=== PATIENT | male | born 1940 | race Caucasian/White ===

== ENCOUNTER 2017-01-04 21:10 | Inpatient (IN) | payer MEDICARE, OTHER ==
[~2017-01-04] VITALS: Ht 172.7 cm; Wt 87.7 kg
[~2017-01-04 21:10] MED LIST: MAGN300C; TERA5CAP42; [UNRECOGNIZED DRUG - OTHER]
[2017-01-04] MEDS ORDERED: cloNIDine HCL 0.1 MG TAB ONE (21:23)
[2017-01-04] MEDS ORDERED: cloNIDine HCL 0.1 MG TAB PO ONE (22:00)
[2017-01-04 22:04] LABS: Basophils # (auto) 0 uL; Basophils % (auto) 0.4 % (0.0-2.0); Eosinophils # (auto) 0.2 uL; Eosinophils % (auto) 2.5 % (0.0-7.0); Hematocrit 43.8 % (41.0-53.0); Hemoglobin 14.9 g/dL (13.5-17.5); Lymphocytes # (auto) 2.5 uL; Lymphocytes % (auto) 31.9 % (10.0-50.0); Mean Corpuscular Hemoglobin 31.3 pg (28.0-32.0); Mean Corpuscular Volume 91.9 fL (80.0-100.0); Mean Platelet Volume 8.4 fL (7.4-10.4); Monocytes # (auto) 0.7 uL; Monocytes % (auto) 8.4 % (0.0-12.0); Neutrophils # (auto) 4.4 uL; Neutrophils % (auto) 56.8 % (37.0-80.0); Platelet Count (auto) 189 10^3/uL (140-450); Red Cell Distribution Width 14.1 % (11.6-16.0); White Blood Cell 7.8 10^3/uL (4.4-10.8)
[2017-01-04 22:06] LABS: Urine Bilirubin Negative (Negative); Urine Blood Negative /uL (Negative); Urine Color Yellow (Yellow); Urine Glucose Normal (Normal); Urine Ketone Negative (Negative); Urine Mucus FEW (None Seen); Urine Nitrite Negative (Negative); Urine RBC <1 /hpf (0 - 3); Urine Urobilinogen Normal (Negative)
[2017-01-04 22:29] LABS: BUN/Creatinine Ratio 23.1; Bilirubin, Total 0.4 mg/dL (0.2-1.0); Calcium 8.3 mg/dL (8.5-10.1); Magnesium 2.5 mg/dL (1.6-2.6); Potassium 4.5 mmol/L (3.5-5.1); Total Protein 6.8 g/dL (6.4-8.2)
[2017-01-05] MEDS ORDERED: ASPI-231 PO (02:37)
[2017-01-05] MEDS ORDERED: ERGO1CAP6 PO (02:38)
[2017-01-05] MEDS ORDERED: SIMV-8 PO (02:38)
[2017-01-05] MEDS ORDERED: METO25TA62 PO (02:40)
[2017-01-05] MEDS ORDERED: ASPirin 81 mg TAB PO ONE (03:15)
[2017-01-05] MEDS ORDERED: SODIUM CHLORIDE 0.9% 1,000 ML IV ONE (06:00)
[2017-01-05] MEDS ORDERED: IOHEXOL 350 MG/ML 100ML IJ ONE (06:40)
[2017-01-05] MEDS ORDERED: NITROGLYCERIN 0.4 MG SL TAB SL PRN (08:45)
[2017-01-05] MEDS ORDERED: TEMAZEPAM 15 MG CAP PO PRN (08:45)
[2017-01-05] MEDS ORDERED: HYDROcodone-ACET 5/325MG TAB PO PRN (08:45)
[2017-01-05] MEDS ORDERED: ACETAMINOPHEN 500 MG TAB PO PRN (08:45)
[2017-01-05] MEDS ORDERED: PROMETHAZINE HCL 25 MG/ML 1ML IV PRN (08:45)
[2017-01-05] MEDS ORDERED: MORPHINE SULF INJ 2 MG/ML SYRINGE 1ML IV PRN ×2 (08:45)
[2017-01-05] MEDS ORDERED: LORazepam 0.5 MG TAB PO PRN (08:45)
[2017-01-05] MEDS: SODIUM CHLORIDE 0.9% 1,000 ML IV SCH ×2 (08:48→11:30)
[2017-01-05] MEDS ORDERED: PATIENTS OWN MEDICATION (Simvastatin 20 MG) PO SCH ×2 (10:00)
[2017-01-05] MEDS ORDERED: PATIENTS OWN MEDICATION (Metoprolol Succinate (Metoprolol Succinate Er) 25 MG) PO SCH ×2 (10:00)
[2017-01-05] MEDS: METOPROLOL TARTRATE 25 MG TAB PO SCH ×2 (10:00→22:00)
[2017-01-05] MEDS: PANTOPRAZOLE 40 MG TAB PO SCH (10:00)
[2017-01-05] MEDS: ENOXAPARIN SOD 40 MG/0.4 ML SYRINGE SC SCH (10:00)
[2017-01-05] MEDS: NITROGLYCERIN 0.2MG/HR TOPICAL PATCH TD SCH (10:00)
[2017-01-05] MEDS: cloNIDine HCL 0.1 MG TAB PO PRN (11:54)
[2017-01-05 13:00] VITALS: BP 180/75
[2017-01-05 17:00] VITALS: BP 148/83
[2017-01-05 20:00] VITALS: BP 162/77
[2017-01-05 20:55] LABS: B-Type Natriuretic Peptide 211.67 pg/mL (0-100); Temperature: 22.9 C (20.0-25.0)
[2017-01-05] MEDS ORDERED: Niacin SR 500mg TAB PO SCH (22:00)
[2017-01-05] MEDS ORDERED: PRAVASTATIN SODIUM 20 MG TAB PO SCH (22:00)
[2017-01-05] MEDS ORDERED: TERAZOSIN HCL 5 MG CAP PO SCH (22:00)
[2017-01-05 22:04] VITALS: BP 162/77
[2017-01-05 23:50] VITALS: BP 160/70
[2017-01-06] MEDS ORDERED: hydrALAZINE HCL 20 MG/ML VL IV ONE (01:15)
[2017-01-06 04:57] VITALS: BP 171/75
[2017-01-06] MEDS: cloNIDine HCL 0.1 MG TAB PO PRN (05:41)
[2017-01-06 07:10] LABS: Cholesterol 125 mg/dL (< 200); HDL Cholesterol 29 mg/dL (40-59); LDL Cholesterol 79 mg/dL (< 100); Triglycerides 151 mg/dL (< 150)
[2017-01-06 07:40] LABS: B-Type Natriuretic Peptide 314.89 pg/mL (0-100); Temperature: 23.5 C (20.0-25.0)
[2017-01-06 08:00] VITALS: BP 178/80
[2017-01-06 09:00] VITALS: BP 178/80
[2017-01-06] MEDS ORDERED: ASPirin 81 mg TAB PO SCH (10:00)
[2017-01-06] MEDS: ENOXAPARIN SOD 40 MG/0.4 ML SYRINGE SC SCH (10:00)
[2017-01-06] MEDS: METOPROLOL TARTRATE 25 MG TAB PO SCH (10:00)
[2017-01-06] MEDS ORDERED: POTASSIUM CHL 20 Meq TABLET PO SCH (10:00)
[2017-01-06] MEDS ORDERED: ENALAPRIL MALEATE 2.5 MG TAB PO SCH (10:00)
[2017-01-06] MEDS ORDERED: FUROSEMIDE 40 MG/4 ML VIAL IV SCH (10:00)
[2017-01-06] MEDS: PANTOPRAZOLE 40 MG TAB PO SCH (10:37)
[2017-01-06] MEDS: NITROGLYCERIN 0.2MG/HR TOPICAL PATCH TD SCH (10:37)
[2017-01-06] MEDS: SODIUM CHLORIDE 0.9% 1,000 ML IV SCH (11:19)
[2017-01-06 12:05] VITALS: BP 176/79
[2017-01-06] MEDS ORDERED: hydrALAZINE HCL 20 MG/ML VL IV PRN (13:00)
[2017-01-06 15:18] VITALS: BP 176/79
[2017-01-06 15:40] VITALS: BP 176/79
== END 2017-01-06 15:40 | disposition home or self-care (01) | DRG 305 ==
LOC: ER 21:15 → TELE 21:16 → TELE-WESTW 01-05 10:17
PROVIDERS: ADMIT Internal Medicine; ATTEND Internal Medicine
DX: I16.0 Hypertensive urgency (principal); E78.5 Hyperlipidemia, unspecified; K57.90 Diverticulosis of intestine, part unspecified, without perforation or abscess without bleeding; N40.0 Benign prostatic hyperplasia without lower urinary tract symptoms; I10 Essential (primary) hypertension; I25.10 Atherosclerotic heart disease of native coronary artery without angina pectoris; R00.1 Bradycardia, unspecified; Z53.29 Procedure and treatment not carried out because of patient's decision for other reasons; I25.2 Old myocardial infarction; Z79.82 Long term (current) use of aspirin; Z79.899 Other long term (current) drug therapy; Z98.61 Coronary angioplasty status; Z95.828 Presence of other vascular implants and grafts; Z95.1 Presence of aortocoronary bypass graft; Z87.891 Personal history of nicotine dependence; Z86.79 Personal history of other diseases of the circulatory system; Z82.0 Family history of epilepsy and other diseases of the nervous system
CPT/HCPCS: 36415; 71020; 71275; 74176; 80053; 80061; 81001; 82550; 83735; 83880; 84484; 85025; 85379; 85652; 86141; 93005; 93970; 96360